=== PATIENT | male | born 1960 | race African-American/Black ===

== ENCOUNTER 2016-12-29 10:58 | Emergency (ER) | payer MEDICARE ==
[~2016-12-29] VITALS: Ht 188 cm; Wt 104.3 kg
[2016-12-29] MEDS ORDERED: CHLORTHALIDONE25 MG ORAL (11:16)
[2016-12-29] MEDS ORDERED: MELOXICAM7.5 MG PO (11:16)
[2016-12-29] MEDS ORDERED: LISINOPRIL40 MG ORAL (11:16)
--- NOTE | 2016-12-29 11:38 | Emergency Room Report ---
History of Present Illness General Chief Complaint: Lower Extremity Injury Source: Patient Present Illness HPI Patient presents with complaints of right foot pain On more specific questioning is at the base of the right large toe Patient noticed increased redness and pain coming on 2 days ago he was icing it And he feels that area has improved However with touch it is painful denies any fevers or chills Denies any trauma Patient does drink alcohol on a regular basis Denies any calf pain or swelling Denies having this problem in the past Allergies: Coded Allergies: No Known Allergies (Unverified , 12/29/16) Patient History Past Medical History: see triage record Pertinent Family History: none Reviewed Nursing Documentation: PMH: Agreed, PSxH: Agreed Nursing Documentation-PMH Hx Hypertension: Yes Review of Systems All Other Systems: negative except mentioned in HPI Physical Exam Vital Signs Date Time Temp Pulse Resp B/P Pulse Ox O2 Delivery O2 Flow Rate FiO2 12/29/16 11:07 97.9 69 16 134/87 99 Room Air Sp02 EP Interpretation: reviewed, normal General Appearance: well appearing, no apparent distress Head: normocephalic, atraumatic Eyes: bilateral eye EOMI, bilateral eye PERRL ENT: hearing grossly normal, normal pharynx, TMs + canals normal, uvula midline Neck: full range of motion, supple, no meningismus, no bony tend Respiratory: lungs clear, normal breath sounds, no rhonchi, no respiratory distress, no retraction, no accessory muscle use Cardiovascular #1: normal peripheral pulses, regular rate, rhythm, no gallop, no JVD, no murmur Gastrointestinal: normal bowel sounds, non tender, soft, no mass, no organomegaly, non-distended, no guarding, no hernia, no pulsatile mass, no rebound Genitourinary: no CVA tenderness Musculoskeletal: other - Mild edema and erythema localized to the right large base of the toe, no fluctuance Neurologic: oriented x3, responsive, reservations sales agent III-XII nml as tested, sensory intact Psychiatric: mood/affect normal Skin: other - As above Lymphatic: normal inspection, no adenopathy Medical Decision Making Diagnostic Impression: Primary Impression: Gout attack ER Course Multiple differentials including but not limited to, occult fracture, joint sepsis, cellulitis considered Patient does not appear to be septic or infectious the area is Classically in line with gout type presentation patient also reports that he does drink Alcohol and regular basis At this time is initially conservatively treated And will return with any changes Last Vital Signs Date Time Temp Pulse Resp B/P Pulse Ox O2 Delivery O2 Flow Rate FiO2 12/29/16 11:07 97.9 69 16 134/87 99 Room Air Status: improved Disposition: HOME, SELF-CARE Condition: Improved Scripts Ibuprofen* (MOTRIN*) 600 Mg Tablet 600 MG ORAL Q8H Y for For Pain, #20 TAB 0 Refills Prov: PUJA WHARTON D.O. 12/29/16 Colchicine (Colchicine) 0.6 Mg Capsule 0.6 MG PO Q12HR, #12 CAP Prov: PUJA WHARTON D.O. 12/29/16 Additional Instructions: Patient is provided with the discharge instructions notified to follow up with primary doctor in the next 2-3 days otherwise return to the er with any worsening symptoms. Please note that this report is being documented using [employer] technology. This can lead to erroneous entry secondary to incorrect interpretation by the dictating instrument. PUJA WHARTON D.O. December 29, 2016 11:38
[2016-12-29] MEDS ORDERED: COLCHICINE0.6 M1 PO (11:42)
[2016-12-29] MEDS ORDERED: IBUPROFEN600 MG ORAL (11:42)
[2016-12-29] MEDS ORDERED: Tylenol #3 tab (300mg/30mg) ORAL ONE (11:45)
[2016-12-29 11:58] VITALS: BP 132/93
== END 2016-12-29 12:05 | disposition home or self-care (01) ==
LOC: EMR 12:00
DX: M10.9 Gout, unspecified (principal); I10 Essential (primary) hypertension
CPT/HCPCS: 99284

== ENCOUNTER 2017-07-20 13:11 | Emergency (ER) | payer MEDICARE ==
[~2017-07-20] VITALS: Ht 188 cm; Wt 102.1 kg
[~2017-07-20 13:11] MED LIST: CHLORTHALIDONE25 MG ORAL; COLCHICINE0.6 M1 PO; IBUPROFEN600 MG ORAL; LISINOPRIL40 MG ORAL; MELOXICAM7.5 MG PO
[2017-07-20] MEDS ORDERED: LISINOPRIL20 MG ORAL (13:21)
--- NOTE | 2017-07-20 13:21 | Emergency Room Report ---
History of Present Illness General Chief Complaint: General Complaint Present Illness HPI 57-year-old male presents to the emergency department complaining of cough, wheezing, rhinorrhea, increased phlegm/mucus in the throat x2 days. Patient denies history of asthma or COPD however he does report history of smoking marijuana intermittently. Patient reported subjective fevers and chills for which he did not measure his temperature. Patient denies ill contacts or recent travel he is up-to-date with vaccinations and denies past medical history other than htn and has had hx of bronchitis in the past which requires inhalers when he gets sick. Patient denies dyspnea on exertion, swelling of the lower extremities, orthopnea.Denies CP, Palpitations, LOC, AMS, dizziness, Changes in Vision, Sensation, paresthesias, or a sudden severe headache. Allergies: Coded Allergies: No Known Allergies (Unverified , 12/29/16) Patient History Past Medical History: see triage record Past Surgical History: none Pertinent Family History: none Social History: Reports: drug use - THC Immunizations: UTD Reviewed Nursing Documentation: PMH: Agreed, PSxH: Agreed Nursing Documentation-PMH Hx Hypertension: Yes Review of Systems All Other Systems: negative except mentioned in HPI Physical Exam Vital Signs Date Time Temp Pulse Resp B/P (MAP) Pulse Ox O2 Delivery O2 Flow Rate FiO2 07/20/17 13:15 98.1 90 19 112/78 97 Room Air Sp02 EP Interpretation: reviewed, normal General Appearance: no apparent distress, alert, GCS 15, non-toxic Head: normocephalic, atraumatic Eyes: bilateral eye normal inspection, bilateral eye PERRL ENT: hearing grossly normal, normal pharynx, no angioedema, normal voice, TMs + canals normal, uvula midline, nasal congestion Neck: full range of motion, supple/symm/no masses Respiratory: chest non-tender, lungs clear, no respiratory distress, no retraction, no accessory muscle use, speaking full sentences, wheezing - wheezing in the bilateral upper lobes Cardiovascular #1: regular rate, rhythm, no edema Rectal: deferred Musculoskeletal: back normal, gait/station normal, normal range of motion, non- tender Neurologic: alert, oriented x3, responsive, motor strength/tone normal, sensory intact, speech normal Skin: normal color, no rash, warm/dry, well hydrated Lymphatic: no adenopathy Medical Decision Making PA Attestation Dr. Yee is my supervising Physician whom patient management has been discussed with. Diagnostic Impression: Primary Impression: Bronchitis ER Course 57-year-old male presents to the emergency department complaining of cough, wheezing, rhinorrhea, increased phlegm/mucus in the throat x2 days. Patient denies history of asthma or COPD however he does report history of smoking marijuana intermittently. Patient reported subjective fevers and chills for which he did not measure his temperature. Patient denies ill contacts or recent travel he is up-to-date with vaccinations and denies past medical history other than htn and has had hx of bronchitis in the past which requires inhalers when he gets sick. Patient denies dyspnea on exertion, swelling of the lower extremities, orthopnea.Denies CP, Palpitations, LOC, AMS, dizziness, Changes in Vision, Sensation, paresthesias, or a sudden severe headache. Ddx considered but are not limited to URI, pneumonia, PE, strep pharyngitis, meningitis, bronchitis just to name a few. Vital signs: Pt.is afebrile VS are WNL H&PE are most consistent with bronchitis ORDERS: none required at this time, the diagnosis is clinical ED INTERVENTIONS: -Duo Nebs DISCHARGE: At this time pt. is stable for d/c to home. Will provide printed patient care instructions, and any necessary prescriptions. Care plan and follow up instructions have been discussed with the patient prior to discharge. Last Vital Signs Date Time Temp Pulse Resp B/P (MAP) Pulse Ox O2 Delivery O2 Flow Rate FiO2 07/20/17 13:15 98.1 90 19 112/78 97 Room Air Disposition: HOME, SELF-CARE Condition: Stable Scripts Cetirizine Hcl/Pseudoephedrine (ZYRTEC-D TABLET) 1 Each Tab.er.12h 1 EACH ORAL Q12HR, #20 TAB Prov: Anamaria Woodward P.A. 07/20/17 Codeine/Promethazine Hcl* (PROMETHAZINE-CODEINE SYRUP*) 118 Ml Syrup 5 ML ORAL Q6H Y for For Cough, #120 ML 0 Refills Prov: Anamaria Woodward P.A. 07/20/17 Guaifenesin (Guaifenesin) 1,200 Mg Tab.er.12h 1200 MG PO Q12HR for 10 Days, #20 TAB Prov: Anamaria Woodward 07/20/17 Albuterol Sulfate* (ALBUTEROL SULFATE HHN*) 2.5 Mg/3 Ml Vial.neb 3 ML INH Q4H Y for Shortness of Breath, #1 EA Prov: Anamaria Woodward. 07/20/17 Patient Instructions: Acute Bronchitis, [id number] Additional Instructions: Take medications as directed. Follow up with a Primary Care Provider in 3-5 days, even if your symptoms have resolved. --Please review list of primary care clinics, if you do not already have a primary care provider Return sooner to ED if new symptoms occur, or current symptoms become worse. Do not drink alcohol, drive, or operate heavy machinery while taking Cough Syrup as this may cause drowsiness. - Please note that this Emergency Department Report was dictated using [employer] technology software, occasionally this can lead to erroneous entry secondary to interpretation by the dictation equipment. Anamaria Woodward Jul 20, 2017 13:21
[2017-07-20 13:35] VITALS: BP 112/78
[2017-07-20] MEDS ORDERED: Ipratropium 0.02% Inh Soln 2.5ml UD HHN ONE (13:45)
[2017-07-20] MEDS ORDERED: Albuterol ud Inhalation HHN ONE (13:45)
[2017-07-20] MEDS ORDERED: ZYRTEC-D TABLE1 EACH ORAL (13:53)
[2017-07-20] MEDS ORDERED: PROMETHAZINE-C118 M1 ORAL (13:53)
[2017-07-20] MEDS ORDERED: GUAIFENESIN1200 MG PO (13:53)
[2017-07-20] MEDS ORDERED: ALBUTEROL2.5 MG/3 M INH (13:53)
[2017-07-20 14:53] VITALS: BP 122/80
== END 2017-07-20 14:20 | disposition home or self-care (01) ==
LOC: EMR 13:29
DX: J40 Bronchitis, not specified as acute or chronic (principal); I10 Essential (primary) hypertension; F12.10 Cannabis abuse, uncomplicated
CPT/HCPCS: 94664; 99284

== ENCOUNTER 2019-08-01 12:43 | Emergency (ER) | payer MEDICARE, OTHER ==
[~2019-08-01] VITALS: Ht 190.5 cm; Wt 104.3 kg
[~2019-08-01 12:43] MED LIST changes: +ALBUTEROL2.5 MG/3 M INH; +GUAIFENESIN1200 MG PO; +LISINOPRIL20 MG ORAL; +PROMETHAZINE-C118 M1 ORAL; +ZYRTEC-D TABLE1 EACH ORAL
[2019-08-01 13:00] VITALS: BP 130/102
--- NOTE | 2019-08-01 13:00 | NUR ---
ED Nurse Note: PT FROM HOME WALKED IN DUE TO PRODUCTIVE COUGHING X 1 WEEK. DENIES FEVER. HX OF ASTHMA AND TAKES ALBUTEROL HHN AT HOME AND GUAIFENESIN FOR COUGHING. EXPIRATORY WHEEZING AUSCULTATED. AAO X,4 AMBULATORY WITH SOB AT REST. SATS 98-99% IN ROOM AIR.
[2019-08-01] MEDS ORDERED: Albuterol/Ipratropium 3ml neb HHN ONE (13:45)
--- NOTE | 2019-08-01 13:48 | NUR ---
ED Nurse Note: RT paged
--- NOTE | 2019-08-01 14:09 | Emergency Room Report ---
History of Present Illness General Chief Complaint: Upper Respiratory Illness Source: Patient, Medical Record Present Illness HPI 59 YO male presents to the ED c/o persistent cough, wheezing and body aches x 1 week. pt. reports hx of asthma and smoking. He reports that his albuterol inhaler and OTC meds at home are not helping and that he is almost out. Pt. reports intermittent mucus production and nasal congestion. Denies sore throat , ear pain, high fevers, lethargy, neck pain/stiffness, irritability, photophobia dehydration, N/V/D. Denies Cp, Palpitations, LOC, AMS, seizures, paresthesias, or changes in Hearing or vision, no Sudden severe VALLEJO. Denies hx of smoking, asthma or COPD. Denies pain at this time. No recent travel or ill contacts. Allergies: Coded Allergies: No Known Allergies (Unverified , 12/29/16) Patient History Past Medical History: see triage record, asthma Past Surgical History: none Pertinent Family History: none Immunizations: UTD Reviewed Nursing Documentation: PMH: Agreed; PSxH: Agreed Nursing Documentation-PMH Hx Hypertension: Yes Hx Asthma: Yes Review of Systems All Other Systems: negative except mentioned in HPI Physical Exam Vital Signs Date Time Temp Pulse Resp B/P (MAP) Pulse Ox O2 Delivery O2 Flow Rate FiO2 08/01/19 12:50 97.7 75 18 132/89 (103) 97 Room Air Sp02 EP Interpretation: reviewed, normal General Appearance: no apparent distress, alert, GCS 15, non-toxic Head: normocephalic, atraumatic Eyes: bilateral eye normal inspection, bilateral eye PERRL ENT: hearing grossly normal, normal voice Neck: full range of motion Respiratory: chest non-tender, lungs clear, normal breath sounds, speaking full sentences, wheezing Cardiovascular #1: regular rate, rhythm, no edema Gastrointestinal: non tender, soft Genitourinary: normal inspection Musculoskeletal: normal range of motion, gait/station normal, non-tender Neurologic: alert, motor strength/tone normal, oriented x3, sensory intact, responsive, speech normal Psychiatric: judgement/insight normal Skin: no rash Lymphatic: no adenopathy Medical Decision Making PA Attestation Dr. Bernardo is my supervising Physician whom patient management has been discussed with. Diagnostic Impression: Primary Impression: Upper respiratory infection Qualified Codes: J06.9 - Acute upper respiratory infection, unspecified Additional Impression: Bronchitis ER Course 59 YO male presents to the ED c/o persistent cough, wheezing and body aches x 1 week. pt. reports hx of asthma and smoking. He reports that his albuterol inhaler and OTC meds at home are not helping and that he is almost out. Pt. reports intermittent mucus production and nasal congestion. Denies sore throat , ear pain, high fevers, lethargy, neck pain/stiffness, irritability, photophobia dehydration, N/V/D. Denies Cp, Palpitations, LOC, AMS, seizures, paresthesias, or changes in Hearing or vision, no Sudden severe VALLEJO. Denies hx of smoking, asthma or COPD. Denies pain at this time. No recent travel or ill contacts. Ddx considered but are not limited to URI, pneumonia, PE, strep pharyngitis, meningitis. Vital signs: Pt.is afebrile VS are WNL H&PE are most consistent with bronchitis ORDERS: none required at this time, the diagnosis is clinical ED INTERVENTIONS: -Krysta KIRKLANDn -I do not identify an emergent condition at this time. With current presentation , pt. is stable for close outpatient follow up and conservative treatment. D/ w pt. to return promptly to ED with worsening or new symptoms.- Pt. verbalizes' understanding and agreement with proposed treatment plan. DISCHARGE: At this time pt. is stable for d/c to home. Will provide printed patient care instructions, and any necessary prescriptions. Care plan and follow up instructions have been discussed with the patient prior to discharge. Last Vital Signs Date Time Temp Pulse Resp B/P (MAP) Pulse Ox O2 Delivery O2 Flow Rate FiO2 08/01/19 13:00 97.7 89 16 130/102 97 Room Air Disposition: HOME, SELF-CARE Condition: Stable Scripts Albuterol Sulfate* (ALBUTEROL SULFATE MDI*) 8.5 Gm Hfa.aer.ad 2 PUFF INH Q3H, #1 INH 0 Refills Prov: Anamaria Woodward 08/01/19 Guaifenesin (Mucinex) 1,200 Mg Tab.er.12h 1200 MG PO Q12HR, #20 TAB Prov: Anamaria Woodward 08/01/19 Codeine/Promethazine Hcl* (PROMETHAZINE-CODEINE SYRUP*) 118 Ml Syrup 5 ML ORAL Q6H PRN for For Cough, #120 ML 0 Refills Prov: Anamaria Woodward 08/01/19 Referrals: NON PHYSICIAN (PCP) Patient Instructions: Upper Respiratory Infection, Adult Additional Instructions: Take medications as directed. Follow up with a Primary Care Provider in 3-5 days, even if your symptoms have resolved. --Please review list of primary care clinics, if you do not already have a primary care provider Return sooner to ED if new symptoms occur, or current symptoms become worse. Do not drink alcohol, drive, or operate heavy machinery while taking Cough Syrup as this may cause drowsiness. - Please note that this Emergency Department Report was dictated using [employer] marketing director technology software, occasionally this can lead to erroneous entry secondary to interpretation by the dictation equipment. Anamaria Woodward Aug 01, 2019 14:09
[2019-08-01] MEDS ORDERED: ALBUTEROL SULF8.5 GM INH (14:11)
[2019-08-01] MEDS ORDERED: PROMETHAZINE-C118 M1 ORAL (14:11)
[2019-08-01] MEDS ORDERED: MUCINEX1200 MG PO (14:11)
[2019-08-01 14:20] VITALS: BP 128/80
--- NOTE | 2019-08-01 14:20 | NUR ---
ER DISCHARGE NOTE: Patient is cleared to be discharged per PA, pt is aox4, on room air, with stable vital signs. pt was given dc and prescription instructions, pt was able to verbalize understanding, pt id band removed. pt is able to ambulate with steady gait. pt took all belongings.
== END 2019-08-01 14:20 | disposition home or self-care (01) ==
LOC: EMR 13:30
DX: J06.9 Acute upper respiratory infection, unspecified (principal); J20.9 Acute bronchitis, unspecified; I10 Essential (primary) hypertension
CPT/HCPCS: 94640; 99283; J7620

== ENCOUNTER 2019-10-08 11:47 | Emergency (ER) | payer MEDICARE, OTHER ==
[~2019-10-08] VITALS: Ht 188 cm; Wt 102.1 kg
[~2019-10-08 11:47] MED LIST changes: +ALBUTEROL SULF8.5 GM INH; +MUCINEX1200 MG PO
[2019-10-08 11:59] VITALS: BP 119/73
--- NOTE | 2019-10-08 12:22 | NUR ---
ED Nurse Note: pt. aaox.4 ambulatory. walked in to er from home. pt. stated he has sweliing over the right big toe x 2 days; stating "I got gout"
[2019-10-08] MEDS ORDERED: Indomethacin 25mg cap ORAL ONE (12:45)
[2019-10-08] MEDS ORDERED: COLCRYS0.6 M1 PO (12:52)
[2019-10-08] MEDS ORDERED: INDOMETHACIN25 MG PO (12:52)
[2019-10-08 13:00] VITALS: BP 115/78
--- NOTE | 2019-10-08 13:44 | Emergency Room Report ---
History of Present Illness General Chief Complaint: Pain Source: Patient Present Illness HPI 59-year-old male presents to the emergency department complaining of 10 out of 10 severity localized pain, swelling and erythema to the base of the right great toe x2 days. Patient describes acute onset upon awakening in the morning. Patient states he has a history of gout. He states he has significantly reduced his alcohol intake since diagnosis of gout in the past. Patient states he does not currently take any preventative gout medications however he states he is interested as he feels he has a gout attack approximately every year. He denies fevers or chills. Trauma or fall. Denies numbness tingling or loss of sensation or gross motor movements of the extremities, incontinence of bowel or bladder. Denies CP, Palpitations, LOC, AMS , dizziness, Changes in Vision, weakness or a sudden severe headache. denies recent open wounds near the affected joint. Reports severe tenderness to very light touch. Allergies: Coded Allergies: No Known Allergies (Unverified , 12/29/16) Patient History Past Medical History: see triage record, other - gout Past Surgical History: none Pertinent Family History: none Reviewed Nursing Documentation: PMH: Agreed; PSxH: Agreed Nursing Documentation-PMH Past Medical History: No History, Except For Hx Cardiac Problems: No - out Hx Hypertension: Yes Hx Pacemaker: No Hx Asthma: Yes Hx COPD: No Hx Diabetes: No Hx Cancer: No Hx Gastrointestinal Problems: No Hx Dialysis: No History Of Psychiatric Problem: No Hx Neurological Problems: Yes - RIGHT KNEE AND LEFT SHOULDER SURGERY. TWO LUMBAR SURGERIES: LUMBAR DISC DIS Hx Cerebrovascular Accident: No Hx Seizures: No Review of Systems All Other Systems: negative except mentioned in HPI Physical Exam Vital Signs Date Time Temp Pulse Resp B/P (MAP) Pulse Ox O2 Delivery O2 Flow Rate FiO2 10/08/19 11:59 98.1 85 16 119/73 (88) 96 Room Air Sp02 EP Interpretation: reviewed, normal General Appearance: no apparent distress, alert, GCS 15, non-toxic Head: normocephalic, atraumatic Eyes: bilateral eye normal inspection, bilateral eye PERRL ENT: hearing grossly normal, normal voice Neck: full range of motion Respiratory: lungs clear, normal breath sounds, speaking full sentences Cardiovascular #1: regular rate, rhythm, normal capillary refill Cardiovascular #2: 2+ dorsalis pedis (R) Musculoskeletal: back normal, normal range of motion, gait/station normal, tender - base of the right great toe, swelling - base of the right great toe Neurologic: alert, motor strength/tone normal, oriented x3, sensory intact, responsive, speech normal, other - Severe sensitivity to light touch at the base of the right great toe Psychiatric: judgement/insight normal Lymphatic: no adenopathy Medical Decision Making PA Attestation Dr. Arellano is my supervising Physician whom patient management has been discussed with. Diagnostic Impression: Primary Impression: Gout attack Qualified Codes: M10.9 - Gout, unspecified ER Course 59-year-old male presents to the emergency department complaining of 10 out of 10 severity localized pain, swelling and erythema to the base of the right great toe x2 days. Patient describes acute onset upon awakening in the morning. Patient states he has a history of gout. He states he has significantly reduced his alcohol intake since diagnosis of gout in the past. Patient states he does not currently take any preventative gout medications however he states he is interested as he feels he has a gout attack approximately every year. He denies fevers or chills. Trauma or fall. Denies numbness tingling or loss of sensation or gross motor movements of the extremities, incontinence of bowel or bladder. Denies CP, Palpitations, LOC, AMS , dizziness, Changes in Vision, weakness or a sudden severe headache. denies recent open wounds near the affected joint. Reports severe tenderness to very light touch. Ddx considered but are not limited to cellulitis, Septic joint, pseudogout fracture, d/L, gout Vital signs: are WNL, pt. is afebrile H&PE are most consistent with recurrent gout attack base of the right toe. ORDERS: none required at this time, the diagnosis is clinical ED INTERVENTIONS: -Colchicine 1.2mg - Indomethacin DISCHARGE: At this time pt. is stable for d/c to home. Will provide printed patient care instructions, and any necessary prescriptions. Care plan and follow up instructions have been discussed with the patient prior to discharge. Last Vital Signs Date Time Temp Pulse Resp B/P (MAP) Pulse Ox O2 Delivery O2 Flow Rate FiO2 10/08/19 13:00 98.1 75 17 115/78 99 Room Air Disposition: HOME, SELF-CARE Condition: Stable Scripts Colchicine (COLCRYS) 0.6 Mg Tablet 0.6 MG PO ONCE, #1 TAB Prov: Anamaria Woodward 10/08/19 Indomethacin (INDOMETHACIN) 25 Mg Capsule 25 MG PO TID for 5 Days, #15 CAP Prov: Anamaria Woodward 10/08/19 Patient Instructions: Gout Additional Instructions: Take medications as directed. * stop taking medications when symptoms resolve * prolonged use can increase your risk for GI bleeding * Talk to your doctor about Allopurinol anti-gout medication. Follow up with a Primary Care Provider in 3-5 days, even if your symptoms have resolved. Return sooner to ED if new symptoms occur, or current symptoms become worse. - Please note that this Emergency Department Report was dictated using [employer] attendant technology software, occasionally this can lead to erroneous entry secondary to interpretation by the dictation equipment. Anamaria Woodward Oct 08, 2019 13:44
== END 2019-10-08 13:00 | disposition home or self-care (01) ==
LOC: EMR 13:00
DX: M10.9 Gout, unspecified (principal); I10 Essential (primary) hypertension
CPT/HCPCS: 99282

== ENCOUNTER 2020-08-21 22:10 | Emergency (ER) | payer MEDICARE, OTHER ==
[~2020-08-21] VITALS: Ht 188 cm; Wt 102.1 kg
[~2020-08-21 22:10] MED LIST changes: +COLCRYS0.6 M1 PO; +INDOMETHACIN25 MG PO
--- NOTE | 2020-08-21 22:19 | NUR ---
ED Nurse Note: pt presents to ED c/o fevers, fatigue, N/V/D for a couple days. pt reports that he had a large family gathering on 08/18 for the holidays, unk if anyone at gathering tested (+). pt is noted to be febrile on triage, denies ever being tested for COVID, denies cough
[2020-08-21 22:21] VITALS: BP 106/76
[2020-08-21] MEDS ORDERED: Acetaminophen 500mg (ES) tab ORAL ONE (22:30)
[2020-08-21] MEDS ORDERED: LOMOTIL TABLET1 EACH ORAL (22:34)
--- NOTE | 2020-08-21 22:37 | Emergency Room Report ---
History of Present Illness General Chief Complaint: Flu Like Symptoms Source: Patient Present Illness HPI This is a 60-year-old male with a history of chronic pain secondary to back surgery. He presents with chief complaint of fever and diarrhea. Onset for 3 days now. He said he was at a gathering on [employer]. Symptoms started the next day. He had fever and one episode of vomiting. His main complaint is diarrhea. It is profuse in nature. No cough congestion. No shortness of breath. No longer having vomiting. 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 TWO LUMBAR SURGERIES: LUMBAR DISC DIS Hx Cerebrovascular Accident: No Hx Seizures: No Review of Systems Constitutional: Reports: fever Eye: Denies: eye pain, blurred vision ENT: Denies: ear pain, nose congestion, throat swelling Respiratory: Denies: cough, shortness of breath Cardiovascular: Denies: chest pain, palpitations Gastrointestinal: Reports: diarrhea; Denies: abdominal pain, nausea, vomiting Musculoskeletal: Denies: back pain, joint pain Skin: Denies: rash Neurological: Denies: headache, numbness Endocrine: Denies: increased thirst, increased urine Hematologic/Lymphatic: Denies: easy bruising All Other Systems: negative except mentioned in HPI Physical Exam Vital Signs Date Time Temp Pulse Resp B/P (MAP) Pulse Ox O2 Delivery O2 Flow Rate FiO2 08/21/20 22:13 101.8 70 18 106/76 (86) 95 Room Air Vitals with fever Sp02 EP Interpretation: reviewed, normal General Appearance: well appearing, no apparent distress, alert Head: normocephalic, atraumatic Eyes: bilateral eye PERRL, bilateral eye EOMI ENT: hearing grossly normal, normal pharynx Neck: full range of motion, supple, no meningismus Respiratory: chest non-tender, lungs clear, normal breath sounds Cardiovascular #1: regular rate, rhythm, no murmur Gastrointestinal: normal bowel sounds, non tender, no mass, no organomegaly, no bruit, non-distended Musculoskeletal: back normal, normal range of motion, gait/station normal Psychiatric: mood/affect normal Medical Decision Making Diagnostic Impression: Primary Impression: Suspected COVID-19 virus infection Additional Impression: Diarrhea Qualified Codes: R19.7 - Diarrhea, unspecified ER Course This patient presents with symptom consistent with Covid infection. He is in no respiratory distress. Stable for discharge home. No evidence of acute abdomen. Last Vital Signs Date Time Temp Pulse Resp B/P (MAP) Pulse Ox O2 Delivery O2 Flow Rate FiO2 08/21/20 22:21 101.8 70 18 106/76 95 Room Air Status: improved Disposition: HOME, SELF-CARE Condition: Stable Scripts Diphenoxylate Hcl/Atropine (LOMOTIL TABLET) 1 Each Tablet 1 TAB ORAL TID, #15 TAB 0 Refills Prov: Kris Christie MD 08/21/20 Referrals: NOT CHOSEN IPA/,REFERRING (PCP) Additional Instructions: You probably have Covid. Recommend outpatient drive-through testing. You may visit [facility] website to get your appointment. [address] [place] [address] . Take Tylenol for fever. Return if symptoms worsen. Kris Christie MD Aug 21, 2020 22:37
[2020-08-21 22:45] VITALS: BP 106/76
--- NOTE | 2020-08-21 22:45 | NUR ---
ER DISCHARGE NOTE: Patient is cleared to be discharged per ERMD, pt is aox4, on room air, with stable vital signs. pt was given dc and prescription instructions, pt was able to verbalize understanding, pt id band removed without complications. pt is able to ambulate with steady gait. pt took all belongings.
== END 2020-08-21 22:45 | disposition home or self-care (01) ==
LOC: EMR 22:21
DX: Z20.828 Contact with and (suspected) exposure to other viral communicable diseases (principal); R19.7 Diarrhea, unspecified; R50.9 Fever, unspecified; R11.10 Vomiting, unspecified; I10 Essential (primary) hypertension; J45.909 Unspecified asthma, uncomplicated
CPT/HCPCS: 99282